=== PATIENT | female | born 1955 | race Caucasian/White ===

== ENCOUNTER 2019-09-02 13:35 | Emergency (ER) | payer MEDICARE ==
[2019-09-02] MEDS ORDERED: predniSONE 20 MG TAB ONE (14:25)
--- NOTE | 2019-09-02 15:11 | RAD ---
RADIOGRAPH CHEST 2 VIEWS: DATE: 09/02/2019. HISTORY: A 68-year-old female with cough and dyspnea. FINDINGS: The thoracic aorta is tortuous and ectatic. There is no evidence of air space density, pneumothorax, or pulmonary edema. There is no cardiomegaly or pleural effusion. There are old rib fracture defor mities involving the posterolateral aspects of the right 8th and 9th ribs. IMPRESSION: 1) No acute cardiopulmonary findings. 2) Ectasia of thoracic aorta. jn [] POS: [facility]
[2019-09-02 15:32] LABS: #Eosinphils 0.2 thou/uL (0.0-0.7); #Monocytes 0.4 thou/uL (0.11-0.59); #Neutrophils 2.5 thou/uL (1.40-6.50); %Basophils 0.6 % (0.0-1.0); %Eosinophils 4.7 % (0.0-10.0); %Lymphocytes 38.8 % (21.0-51.0); %Monocytes 6.8 % (0.0-10.0); %Neutrophils 49.2 % (42.0-75.0); Hemoglobin 13.6 g/dL (12.0-16.0); Mean Corpuscular HGB CONC 34.2 g/dL (32.0-36.0); Mean Corpuscular Hemoglobin 32.6 pg (27.0-31.0); Mean Corpuscular Volume 95.4 fL (78.0-98.0); Mean Platelet Volume 8.3 fL (7.4-10.4); Platelet Count 220 thou/uL (130-400); RBC Distribution Width 11.5 % (11.5-14.5); Red Blood Cell (RBC) Count 4.17 mill/uL (4.20-5.40); White Blood Cell (WBC) Count 5.2 thou/uL (4.8-10.8)
[2019-09-02 16:05] LABS: ALT (SGPT) 14 U/L (8-55); AST (SGOT) 19 U/L (5-34); Albumin 4.4 g/dL (3.4-4.8); Alkaline Phosphatase 62 U/L (40-110); Anion Gap 14 mmol/L (10-20); BUN (Urea Nitrogen) 11 mg/dL (9.8-20.1); Bilirubin, Total 1.5 mg/dL (0.2-1.2); Calc. Creatinine Clearance 0 mL/min (70-130); Calcium 9.5 mg/dL (7.8-10.44); Carbon Dioxide 24 mmol/L (23-31); Chloride 105 mmol/L (98-107); Estimated GFR-MDRD 63; Globulin 2.5 g/dL (2.4-3.5); Glucose 99 mg/dL (80-115); Lipase 22 U/L (8-78); Potassium 4.1 mmol/L (3.5-5.1); Protein, Total 6.9 g/dL (6.0-8.3); Sodium 139 mmol/L (136-145)
== END 2019-09-02 18:06 | disposition home or self-care (01) ==
LOC: ERS 13:35
DX: J45.901 Unspecified asthma with (acute) exacerbation (principal); F32.9 Major depressive disorder, single episode, unspecified
CPT/HCPCS: 36415; 71046; 80053; 83690; 83880; 84484; 85025; 93005; 94640; J7512; J7620

== ENCOUNTER 2020-01-10 10:53 | Emergency (ER) | payer MEDICARE ==
[2020-01-10] MEDS ORDERED: Adacel (T-DAP) 0.5 ML SYRINGE ONE (11:23)
--- NOTE | 2020-01-10 12:20 | RAD ---
LEFT WRIST 3 VIEWS: Date: 01/10/2020 HISTORY: Fall, left wrist pain. FINDINGS/IMPRESSION: There is a fracture involving the distal radius without significant displacement. POS: [facility]
== END 2020-01-10 11:43 | disposition home or self-care (01) ==
LOC: ERS 10:53
DX: S52.502A Unspecified fracture of the lower end of left radius, initial encounter for closed fracture (principal); F32.9 Major depressive disorder, single episode, unspecified; W01.0XXA Fall on same level from slipping, tripping and stumbling without subsequent striking against object, initial encounter
CPT/HCPCS: 29125; 90471; 90715

== ENCOUNTER 2020-01-13 09:42 | Emergency (ER) | payer MEDICARE, MEDICAID | END 2020-01-13 11:33 | disposition home or self-care (01) | LOC: ERS 09:42 | DX: M79.89 Other specified soft tissue disorders (principal); J45.909 Unspecified asthma, uncomplicated; F32.9 Major depressive disorder, single episode, unspecified; R60.0 Localized edema; Z96.698 Presence of other orthopedic joint implants; Z79.899 Other long term (current) drug therapy | CPT/HCPCS: 99283 ==

== ENCOUNTER 2020-03-09 10:16 | Outpatient (CLI) | payer MEDICARE ==
[2020-03-10 13:49] LABS: SARS-CoV-2 MS2 Positive; SARS-CoV-2 N Gene Negative; SARS-CoV-2 S Gene Negative; SARS-CoV-2 by NAA Not Detected (NotDetected); SARS-CoV-2 orf1ab Negative
== END 2020-03-09 10:17 | disposition home or self-care (01) ==
LOC: LABSCS 10:16
PROVIDERS: ATTEND Internal Medicine Critical Care Medicine
DX: J45.909 Unspecified asthma, uncomplicated (principal); Z20.828 Contact with and (suspected) exposure to other viral communicable diseases
CPT/HCPCS: 87635; U0003

== ENCOUNTER 2022-02-11 08:25 | Emergency (ER) | payer MEDICARE, MEDICAID ==
[2022-02-11] MEDS ORDERED: Lorazepam (BATCHED) 2 MG/ML SYR ONE (08:49)
[2022-02-11 09:06] LABS: #Lymphocytes 0.8 thou/uL (1.20-3.40); #Monocytes 0.3 thou/uL (0.11-0.59); #Neutrophils 7.2 thou/uL (1.40-6.50); %Basophils 0.2 % (0.0-1.0); %Eosinophils 0.2 % (0.0-10.0); %Lymphocytes 9.6 % (21.0-51.0); %Monocytes 3.7 % (0.0-10.0); %Neutrophils 86.3 % (42.0-75.0); Hemoglobin 13.2 g/dL (12.0-16.0); Mean Corpuscular HGB CONC 33.4 g/dL (32.0-36.0); Mean Corpuscular Hemoglobin 32.6 pg (27.0-31.0); Mean Corpuscular Volume 97.4 fL (78.0-98.0); Mean Platelet Volume 8.9 fL (7.4-10.4); Platelet Count 220 thou/uL (130-400); RBC Distribution Width 11.9 % (11.5-14.5); Red Blood Cell (RBC) Count 4.06 mill/uL (4.20-5.40); White Blood Cell (WBC) Count 8.4 thou/uL (4.8-10.8)
[2022-02-11 09:07] LABS: Actual Bicarbonate (HCO3v) 19 mEq/L (22-28); Analyzer IN Cardio ER; Base Excess -2.6 mEq/L (-2.0 to +3.0); Hemoglobin (Hb) 14.4 g/dL (11.7-16.1)
[2022-02-11 09:08] LABS: Calcium, Ionized (venous) 1.03 mmol/L (1.16-1.32); Chloride (VBG) 109 mmol/L (98-106); Potassium (VBG) 3.56 mmol/L (3.70-5.30); Sodium 139.6 mmol/L (133-146)
[2022-02-11 09:15] LABS: ALT (SGPT) 12 U/L (8-55); AST (SGOT) 22 U/L (5-34); Albumin 4.3 g/dL (3.4-4.8); Alkaline Phosphatase 57 U/L (40-110); Anion Gap 18 mmol/L (10-20); BUN (Urea Nitrogen) 11 mg/dL (9.8-20.1); Bilirubin, Total 1.3 mg/dL (0.2-1.2); Calc. Creatinine Clearance 0 mL/min (70-130); Calcium 9.8 mg/dL (7.8-10.44); Carbon Dioxide 22 mmol/L (23-31); Chloride 106 mmol/L (98-107); Estimated GFR 59; Globulin 2.6 g/dL (2.4-3.5); Glucose 197 mg/dL (80-115); Potassium 3.9 mmol/L (3.5-5.1); Protein, Total 6.9 g/dL (5.8-8.1); Sodium 142 mmol/L (136-145)
[2022-02-11] MEDS ORDERED: Ondansetron PF 4 MG/2 ML Vial ONE (11:35)
[2022-02-11 12:18] LABS: Troponin I Less than 0.010 ng/mL (< 0.028)
[2022-02-11] MEDS ORDERED: Pantoprazole 40 MG VIAL ONE (12:19)
[2022-02-11] MEDS ORDERED: Iopamidol-370 76% 500 ML 1 ML ONE (15:52)
== END 2022-02-11 13:09 | disposition home or self-care (01) ==
LOC: ERS 08:25
DX: K82.4 Cholesterolosis of gallbladder (principal); R11.2 Nausea with vomiting, unspecified; R06.02 Shortness of breath; R10.13 Epigastric pain; R73.9 Hyperglycemia, unspecified
CPT/HCPCS: 71045; 71275; 76705; 80053; 82805; 84484 ×2; 85025; 85379; 93005; 96374; 96375; 99285; J2060; 36415; C9113; J2405; Q9967

== ENCOUNTER 2023-02-10 04:46 | Inpatient (IN) | payer OTHER, MEDICAID ==
[2023-02-10] MEDS ORDERED: Morphine 4 MG/ML VIAL SLOW IVP PRN (06:22)
[2023-02-10 08:35] LABS: #Monocytes 0.5 thou/uL (0.11-0.59); #Neutrophils 9.7 thou/uL (1.40-6.50); %Basophils 0.1 % (0.0-1.0); %Lymphocytes 2.8 % (21.0-51.0); %Monocytes 4.9 % (0.0-10.0); %Neutrophils 91.9 % (42.0-75.0); Hematocrit 38.4 % (36.0-47.0); Hemoglobin 12.8 g/dL (12.0-16.0); Mean Corpuscular HGB CONC 33.3 g/dL (32.0-36.0); Mean Corpuscular Hemoglobin 32.1 pg (27.0-31.0); Mean Corpuscular Volume 96.2 fl (78.0-98.0); Mean Platelet Volume 10.2 fL (7.4-10.4); Platelet Count 244 10x3/uL (130-400); Red Blood Cell (RBC) Count 3.99 mill/uL (4.20-5.40); White Blood Cell (WBC) Count 10.6 10x3/uL (4.8-10.8)
[2023-02-10 08:57] LABS: Anion Gap 14 mmol/L (10-20); BUN (Urea Nitrogen) 11 mg/dL (9.8-20.1); Calc. Creatinine Clearance 0 mL/min (70-130); Calcium 9.2 mg/dL (7.8-10.44); Carbon Dioxide 25 mmol/L (23-31); Chloride 105 mmol/L (98-107); Estimated GFR 63; Glucose 160 mg/dL (80-115); Phosphorus 2.8 mg/dL (2.3-4.7); Potassium 4.2 mmol/L (3.5-5.1); Sodium 140 mmol/L (136-145)
[2023-02-10] MEDS ORDERED: MD-Gastroview 120 ML BOT ONE (08:59)
[2023-02-10] MEDS: Lactated Ringer's 1,000 ML IV SCH ×3 (09:09→20:44)
[2023-02-10] MEDS: Pantoprazole 40 MG VIAL IVP SCH (09:09)
[2023-02-10] MEDS: Ondansetron PF 4 MG/2 ML Vial IVP PRN ×2 (09:09→13:50)
[2023-02-10 09:11] VITALS: BMI 27.4
[2023-02-10] MEDS: Ketorolac Tromethamine 30 MG/ML VIAL IVP PRN ×2 (16:22→22:39)
[2023-02-10] MEDS: Acetaminophen 500 MG TAB PO SCH ×2 (18:13→23:46)
[2023-02-11] MEDS: Ketorolac Tromethamine 30 MG/ML VIAL IVP PRN (05:16)
[2023-02-11] MEDS: Lactated Ringer's 1,000 ML IV SCH (05:19)
[2023-02-11] MEDS: Acetaminophen 500 MG TAB PO SCH ×2 (05:30→08:31)
[2023-02-11 06:12] LABS: #Eosinphils 0.1 thou/uL (0.0-0.7); #Monocytes 0.5 thou/uL (0.11-0.59); #Neutrophils 3.7 thou/uL (1.40-6.50); %Basophils 0.3 % (0.0-1.0); %Eosinophils 1.3 % (0.0-10.0); %Lymphocytes 30.6 % (21.0-51.0); %Monocytes 7.7 % (0.0-10.0); %Neutrophils 59.8 % (42.0-75.0); Hemoglobin 11.6 g/dL (12.0-16.0); Mean Corpuscular HGB CONC 33.1 g/dL (32.0-36.0); Mean Corpuscular Hemoglobin 32.3 pg (27.0-31.0); Mean Corpuscular Volume 97.5 fl (78.0-98.0); Mean Platelet Volume 10.1 fL (7.4-10.4); Platelet Count 198 10x3/uL (130-400); RBC Distribution Width 13.2 % (11.5-14.5); Red Blood Cell (RBC) Count 3.59 mill/uL (4.20-5.40); White Blood Cell (WBC) Count 6.2 10x3/uL (4.8-10.8)
[2023-02-11 06:38] LABS: Anion Gap 12 mmol/L (10-20); BUN (Urea Nitrogen) 14 mg/dL (9.8-20.1); Calc. Creatinine Clearance 62 mL/min (70-130); Calcium 8.6 mg/dL (7.8-10.44); Carbon Dioxide 25 mmol/L (23-31); Chloride 108 mmol/L (98-107); Estimated GFR 66; Glucose 84 mg/dL (80-115); Phosphorus 2.8 mg/dL (2.3-4.7); Potassium 3.7 mmol/L (3.5-5.1); Sodium 141 mmol/L (136-145)
[2023-02-11] MEDS: Pantoprazole 40 MG VIAL IVP SCH (08:28)
[2023-02-11 09:54] VITALS: BP 131/85; TEMP 98.2
== END 2023-02-11 13:01 | disposition home or self-care (01) | DRG 390 ==
LOC: SURG B 06:16
PROVIDERS: ADMIT Specialist; ATTEND Specialist
DX: K56.600 Partial intestinal obstruction, unspecified as to cause (principal); Z98.51 Tubal ligation status; K82.4 Cholesterolosis of gallbladder
CPT/HCPCS: 36415; 36416; 74022; 74250; 80048; 83735; 84100; 85025; C9113; J1650; J1885; J2405; J7120; Q9963

== ENCOUNTER 2023-03-26 09:26 | Outpatient (CLI) | payer OTHER, MEDICAID | END 2023-03-26 09:27 | disposition home or self-care (01) | LOC: ULT 09:26 | PROVIDERS: ATTEND Nurse Practitioner Family | DX: K82.4 Cholesterolosis of gallbladder (principal) | CPT/HCPCS: 76705 ==